=== PATIENT | male | born 1955 | race Asian ===

== ENCOUNTER 2018-09-16 17:38 | Emergency (ER) | payer OTHER ==
[~2018-09-16] VITALS: Ht 182.9 cm; Wt 82.6 kg
[2018-09-16 17:47] VITALS: Ht 182.9 cm; Wt 82.6 kg
[2018-09-16 20:28] VITALS: BP 112/72
== END 2018-09-16 20:28 | disposition home or self-care (01) ==
LOC: ED 17:38
DX: J32.2 Chronic ethmoidal sinusitis (principal); R20.2 Paresthesia of skin; Z13.858 Encounter for screening for other nervous system disorders; I10 Essential (primary) hypertension; E78.00 Pure hypercholesterolemia, unspecified